=== PATIENT | male | born 1990 | race Caucasian/White ===

== ENCOUNTER 2018-06-10 09:24 | Emergency (ER) | payer OTHER ==
--- NOTE | 2018-06-10 09:48 | EDPHY ---
H & P Time Seen by Provider: 06/10/18 09:37 HPI/ROS: CHIEF COMPLAINT: Left-sided chest pain HISTORY OF PRESENT ILLNESS: Otherwise healthy noted at last night at 9:00 p.m.. No recent URI. Says it is constant just left of his sternum and his upper chest, says it is worse with deep inspiration. Not associated with cough or hemoptysis. No fever or chills. No leg swelling. Not short of breath. Symptoms mild, not associated with radiation to arm back or jaw. No weakness or numbness in extremities. REVIEW OF SYSTEMS: Eye: no change in vision ENT: no sore throat Cardiac: HPI Pulmonary: HPI Abdomen: no vomiting, diarrhea, abdominal pain Musculoskeletal: No leg swelling Skin: no rash Neuro: no headache Constitutional: no fever : no urinary symptoms A comprehensive 10 point review of systems is otherwise negative aside from elements mentioned in the history of present illness. PAST MEDICAL HISTORY: Negative. Specifically no diabetes hypertension or hypercholesterolemia. Family history: Negative for premature coronary disease or sudden , negative for venous thromboembolism. Social history: Nonsmoker, no cocaine, no recent travel or immobilization. General Appearance: Alert and conversant, cooperative. Eyes: No scleral icterus. ENT, Mouth: Normal mucous membranes. Respiratory: Normal respiratory effort, breath sounds equal, lungs are clear to auscultation. No crepitus and no wheezing. Cardiovascular: Regular rate and rhythm. Gastrointestinal: Abdomen is soft and non tender. Neurological: Alert, face symmetric, normal motor and sensory in extremities. Skin: Warm and dry, no rashes. Musculoskeletal: No calf tenderness, leg symmetric. Psychiatric: Not agitated. Emergency Department course/MDM: PERC negative, pulmonary embolism unlikely. Differential diagnosis considered for chest pain including but not limited to myocardial ischemia, aortic dissection, pericarditis, pulmonary embolus, chest wall pain, pleural inflammation and pulmonary infectious causes. ACS unlikely with normal EKG and no risk factors and atypical symptoms. Plan for chest x-ray. Smoking Status: Former smoker Constitutional: Initial Vital Signs Temperature (C) 36.8 C 06/10/18 09:30 Heart Rate 72 06/10/18 09:30 Respiratory Rate 16 06/10/18 09:30 Blood Pressure 128/83 H 06/10/18 09:30 O2 Sat (%) 96 06/10/18 09:30 O2 Delivery Mode Room Air Allergies/Adverse Reactions: No Known Allergies Allergy (Unverified 06/10/18 09:28) Medical Decision Making - Diagnostics EKG Interpretation: 12-lead EKG interpreted by me; official reading is in computer system. My interpretation is sinus rhythm rate 65 normal intervals and no ischemic changes. Imaging Results: Imaging Impressions Chest X-Ray 06/10/18 09:45 Impression: Normal. Imaging: I viewed and interpreted images myself Departure - Departure Disposition: Home, Routine, Self-Care Clinical Impression: Chest pain Qualifiers: Chest pain type: unspecified Qualified Code(s): R07.9 - Chest pain, unspecified Condition: Good Instructions: Chest Pain (ED) Additional Instructions: Normal EKG and chest x-ray. More likely muscular or inflammatory. Ibuprofen 600 mg by mouth every 8 hr as needed for the next 3-4 days for pain. Referrals: Constanza Cruz MD [Medical Doctor] - As per Instructions
--- NOTE | 2018-06-10 10:13 | CPEKG ---
Test Reason : OPEN Blood Pressure : / mmHG Vent. Rate : 065 BPM Atrial Rate : 065 BPM P-R Int : 127 ms QRS Dur : 096 ms QT Int : 397 ms P-R-T Axes : 005 012 014 degrees QTc Int : 413 ms Sinus rhythm Confirmed by Ryan Gomez ([id number]) on 06/10/2018 10:12:50 AM Referred By: RYAN GOMEZ Confirmed By:Ryan Gomez
[2018-06-10 10:21] VITALS: BP 136/79
== END 2018-06-10 10:16 | disposition home or self-care (01) ==
DX: R07.9 Chest pain, unspecified (principal); R06.02 Shortness of breath; Z87.891 Personal history of nicotine dependence

== ENCOUNTER 2018-09-28 15:50 | Inpatient (IN) | payer SELFPAY ==
[2018-09-28 16:30] LABS: PLATELET COUNT 333 10^3/uL (150-400)
--- NOTE | 2018-09-28 17:24 | EDPHY ---
H & P Time Seen by Provider: 09/28/18 16:10 HPI/ROS: HPI Suicidal thoughts. 28-year-old male on an M1 hold with [place] police and EMS from the [facility]. The patient showed up at the crisis Center and told the provider there that he was having increased suicidal thoughts. He has a long history of depression. He has a history of 3 prior suicide attempts. The most recent 1 about a week and half ago, he attempted to cut his wrist. I evaluated his wrists. There is a small well-healed linear laceration that runs parallel to the midline. He tells me that this was more just cutting to distract himself and not an actual suicide attempt. The provider at the crisis Center fill that he was very in different to his life and sent him here on an M1 hold for an evaluation. Patient denies any other complaints. No history of assault or other traumatic injury. ROS: Constitutional: No fever, no chills. As above. Eyes: No discharge. No changes in vision. ENT: No sore throat. No nasal congestion or rhinorrhea. Respiratory: No cough. No shortness of breath. Cardiac: No chest pain, no palpitations. Gastrointestinal: No abdominal pain, no vomiting, no diarrhea. Genitourinary: No hematuria. No dysuria or increased frequency with urination. Musculoskeletal: No back pain. No neck pain. No myalgias or arthralgias. Skin: No rashes. Neurological: No headache. No focal weakness or altered sensation. Past medical history: Depression. He is a [facility] client. Social history: Smokes marijuana. Denies other IV drugs or street drugs. No alcohol. Currently here with his sister who is involved with his care. Physical Exam: General Appearance: Alert, no distress. He is eating. This patient is responding to questions appropriately and in full sentences. This patient appears well-hydrated and well-nourished. Head: Normocephalic atraumatic. Eyes: Pupils equal and round no pallor or injection. No lid edema, erythema or injection. Respiratory: There are no retractions, lungs are clear to auscultation with good air movement bilaterally. Cardiovascular: Regular rate and rhythm. No murmur. Gastrointestinal: Abdomen is soft and nontender, no masses, bowel sounds normal. No focal tenderness at McBurney's point. No Segura sign. Neurological: Motor sensory function is grossly intact. Cranial nerves are normal. Gait is normal. Skin: Warm and dry, no rashes. Musculoskeletal: Neck is supple and nontender. Extremities are symmetrical. All joints range without pain or impingement. Psychiatric: No agitation. No depression. Database: EKG: Imaging: Procedures: Emergency department course: Triage vital signs reviewed and are unremarkable. Behavioral Health TLC notified. Patient's lab work and tox screens reviewed by myself. Patient medically cleared for behavioral health evaluation at 5:25 p.m.. 7:30 p.m., the patient has been seen and evaluated by [facility]. The patient will be admitted to [address] [place] [address] under the care of Dr. Good. I have filled out the appropriate transfer paperwork. The patient's remaining emergency department course under my care has been uneventful. The patient was transferred in stable condition. Differential Diagnosis: The differential diagnosis on this patient includes but is not limited to situational depression, major depression, suicidal ideation. This represents a partial list of diagnoses considered. These considerations are based on history , physical exam, past history, reassessment and diagnostic testing. Smoking Status: Former smoker Constitutional: Initial Vital Signs Temperature (C) 36.9 C 09/28/18 16:15 Heart Rate 79 09/28/18 16:15 Respiratory Rate 16 09/28/18 16:15 Blood Pressure 136/108 H 09/28/18 16:15 O2 Sat (%) 97 09/28/18 16:15 O2 Delivery Mode Room Air Allergies/Adverse Reactions: No Known Allergies Allergy (Unverified 06/10/18 09:28) Home Medications: Medication Instructions Recorded NK [No Known Home Meds] 09/28/18 Medical Decision Making - Data Points Laboratory Results: Laboratory Results 09/28/18 16:18 09/28/18 16:18 09/28/18 09/28/18 09/28/18 16:18 16:18 16:00 WBC 11.52 10^3/uL H 10^3/uL (3.80-9.50) RBC 5.70 10^6/uL 10^6/uL (4.40-6.38) Hgb 16.3 g/dL g/dL (13.7-17.5) Hct 47.3 % % (40.0-51.0) MCV 83.0 fL fL (81.5-99.8) MCH 28.6 pg pg (27.9-34.1) MCHC 34.5 g/dL g/dL (32.4-36.7) RDW 12.4 % % (11.5-15.2) Plt Count 333 10^3/uL 10^3/uL (150-400) MPV 11.5 fL fL (8.7-11.7) Neut % (Auto) 51.6 % % (39.3-74.2) Lymph % (Auto) 36.3 % % (15.0-45.0) Peach % (Auto) 9.1 % % (4.5-13.0) Eos % (Auto) 1.7 % % (0.6-7.6) Baso % (Auto) 0.8 % % (0.3-1.7) Nucleat RBC Rel Count 0.0 % % (0.0-0.2) Absolute Neuts (auto) 5.94 10^3/uL 10^3/uL (1.70-6.50) Absolute Lymphs (auto) 4.18 10^3/uL H 10^3/uL (1.00-3.00) Absolute Monos (auto) 1.05 10^3/uL H 10^3/uL (0.30-0.80) Absolute Eos (auto) 0.20 10^3/uL 10^3/uL (0.03-0.40) Absolute Basos (auto) 0.09 10^3/uL 10^3/uL (0.02-0.10) Absolute Nucleated RBC 0.00 10^3/uL 10^3/uL (0-0.01) Immature Gran % 0.5 % % (0.0-1.1) Immature Gran # 0.06 10^3/uL 10^3/uL (0.00-0.10) Sodium 139 mEq/L mEq/L (135-145) Potassium 3.9 mEq/L mEq/L (3.5-5.2) Chloride 105 mEq/L mEq/L (97-110) Carbon Dioxide 20 mEq/l L mEq/l (22-31) Anion Gap 14 mEq/L mEq/L (6-14) BUN 9 mg/dL mg/dL (7-23) Creatinine 0.9 mg/dL mg/dL (0.7-1.3) Estimated GFR > 60 Glucose 88 mg/dL mg/dL (70-100) Calcium 9.6 mg/dL mg/dL (8.5-10.4) Urine Opiates Screen NEGATIVE (NEGATIVE) Urine Barbiturates NEGATIVE (NEGATIVE) Ur Phencyclidine Scrn NEGATIVE (NEGATIVE) Ur Amphetamine Screen NEGATIVE (NEGATIVE) U Benzodiazepines Scrn NEGATIVE (NEGATIVE) Urine Cocaine Screen NEGATIVE (NEGATIVE) U Marijuana (THC) Screen NON-NEGATIVE H (NEGATIVE) Ethyl Alcohol < 10 mg/dL mg/dL (0-10) Departure - Departure Disposition: [facility] IP Clinical Impression: Suicidal ideation Referrals: NONE *PRIMARY CARE P,. [Primary Care Provider] - As per Instructions
--- NOTE | 2018-09-28 20:03 | PDCONSULT ---
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 Will be admitted to Behavioral Health. Medical consultation 28-year-old male on an M1 hold with [place] police and EMS from the [facility] crisis [facility]. The patient showed up at the crisis Center and told the provider there that he was having increased suicidal thoughts. He has a long history of depression. He has a history of 3 prior suicide attempts. The most recent 1 about a week and half ago, he attempted to cut his wrist. Reports to me that he is not actively suicidal but feels that he is "slowly killing himself". He is able to follow commands and answers some questions. Other than his psychiatric disease, he does not have a significant medical hx. He denies DM but reports that he is really worried about having DM. He denies CV , Pulm, Endocrine disease. He denies fever, n/v/d, cough, sob. He had cp about a week ago but none currently. he denies leg swelling ROS: Constitutional: No fever, no chills. As above. Eyes: No discharge. No changes in vision. ENT: No sore throat. No nasal congestion or rhinorrhea. Respiratory: No cough. No shortness of breath. Cardiac: No chest pain, no palpitations. Gastrointestinal: No abdominal pain, no vomiting, no diarrhea. Genitourinary: No hematuria. No dysuria or increased frequency with urination. Musculoskeletal: No back pain. No neck pain. No myalgias or arthralgias. Skin: No rashes. Neurological: No headache. No focal weakness or altered sensation. Past medical history: Depression. He is a [facility] client. Social history: Smokes marijuana. Denies other IV drugs or street drugs. No alcohol. Currently here with his sister who is involved with his care. Physical Exam: General Appearance: Alert, no distress. He is eating. This patient is responding to questions appropriately and in full sentences. This patient appears well-hydrated and well-nourished. Head: Normocephalic atraumatic. Eyes: Pupils equal and round no pallor or injection. EOMI Respiratory: There are no retractions, lungs are clear to auscultation with good air movement bilaterally. Cardiovascular: Regular rate and rhythm. No murmur. Gastrointestinal: Abdomen is soft and nontender, no masses, bowel sounds normal. Neurological: Motor sensory function is grossly intact. Cranial nerves are normal. Skin: warm Musculoskeletal: Neck is supple and nontender. Extremities are symmetrical. All joints range without pain or impingement. Psychiatric: No agitation. Labs: reviewed A/P #Suicidal Ideations #Major Depression #Obesity Plan: Behavioral health admission check for diabetes per his request check TSH thank you for this consult. Please call if questions
[2018-09-28] MEDS ORDERED: NICOTINE POLACRILEX 2 MG GUM B PRN (21:52)
[2018-09-28] MEDS ORDERED: LORazepam 0.5 MG TAB PO PRN (21:52)
[2018-09-28] MEDS ORDERED: OLANZapine DISINTEGR 5 MG TAB PO PRN (21:52)
[2018-09-28] MEDS ORDERED: MAGNESIUM HYDROXIDE 30 ML UDCUP PO PRN (21:52)
[2018-09-28] MEDS ORDERED: MAG HYDROX/AL HYDROX/SIMETH 30 ML UDCUP PO PRN (21:52)
[2018-09-28] MEDS ORDERED: ACETAMINOPHEN 325 MG TAB PO PRN (21:52)
--- NOTE | 2018-09-29 07:38 | ASMTBHMTP ---
Master Treatment Plan Master Treatment Plan Answers: Depressed Mood with for: Suicidal Ideation Date: 09/29/2018 Diagnosis on Admission: Major Depressive Disorder Expected length of stay: 3-5 Reason for admission: Notes: Per ED report: "28 y.o. male on M1 hold with [place] police and EMS from the [facility] crisis center. The pt. showed up at the crisis center and told the provider there that he was having increased suicidal thoughts. He has a long history of depression. He has a history of 3 prior suicide attempts. The most recent one about a week and a half ago, he attempted to cut his wrist. Reports that he is not actively suicidal but feels that he is "slowly killing himself". Patient's stated presenting problems: Notes: "Severe depression that started to negatively impact my life". Patient's goals for treatment: Notes: "I'm curious about having ADD. I never follow through with anything, never able to hold a job". Patient's strengths: Notes: "I'm a quick learner". Identify supports outside of hospital: Notes: "I don't turn to people for support. I will turn to my family but emotionally I don't seek help". Discharge criteria: Notes: Suicidal ideation will resolve and ct. will have a plan to dafely manage recurrent suicidal ideation. Initial disposition plan/considerations: Notes: Ct. mood will return to baseline. Ct. will participate in units activities and in planning for his discharge. Master Treatment Plan Required Signatures Psychiatrist signature: Answers: Psychiatrist: RN on-shift signature: Answers: RN: Patient signature: Answers: Patient: Date Signed: 09/29/2018 07:37 AM Electronically Signed By:Temi Harrison.[facility]
--- NOTE | 2018-09-29 07:52 | ASMTCMCOM ---
CM Note CM Note Notes: CC met with ct. to develop MTP. Ct. reported hx of depression. Ct. reported that he is not getting any MH services and has no providers. He said that medications trials were unsuccessful as they are making him numb and reckless. Ct. is open to saying MH providers. He reported that he lives with his mother and brother and that he has a trust fund that helps support him. He identified his issues as "Lack of will to live, short attention span". He reported that he gets bored easily and that he was never able to carry a job. He signed TANNA for his parents. Date Signed: 09/29/2018 07:51 AM Electronically Signed By:Temi Harrison.[facility]
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
--- NOTE | 2018-09-29 13:35 | ASMTBHFAM ---
Notes Note: Notes: CC met with FOC and ct. per their request. FOC is interested in exploring residential programs as ct. would like to move out of [facility] home and would need additional support. CC discussed [facility] and [facility] and refed. FOC to their website. FOC would like staff recommendations regarding appropriate programs. He would also like updates on ct.'s progress. His phone number is [phone]. Date Signed: 09/29/2018 01:35 PM Electronically Signed By:Temi Harrison.[facility]
--- NOTE | 2018-09-30 07:41 | SOAPPROG ---
SOAP Progress Note Assessment/Plan: Assessment: Major Depressive Disorder, Severe, with anxious distress. Cannabis Use Disorder. Alcohol Use Disorder. (see subjective/objective note). Patient could benefit from continued inpatient hospitalization for crisis stabilization , safety, medication evaluation, and to establish safe discharge plan including follow-up appointments. Consider discharge this week if patient is stable and has a safe discharge plan. Plan: 1. Psychotropic medications: Continue current medications. 2. Review with patient informed consent and recommendations for psychotropic medication treatment listed below 3. Labs: no additional at this time 4. Therapy: continue milieu and group therapy 5. Further investigation including gathering information from patients relatives and review of past case records to inform treatment plan. 6. Safety/Wellness plan and follow-up outpatient appointments to be established prior to discharge. Next steps are for patient to meet with certified caregiver to plan a safe discharge plan and establish outpatient services for ongoing treatment. 7. Confer with inpatient treatment team regarding treatment plan. 8. Psychosocial stressors addressed through telephonic nurse case manager. 9. Legal status: M1 10. Consider discharge this week if patient is in stable condition, safe, and has a safe discharge plan. PSYCHOTROPIC MEDICATION TREATMENT INFORMED CONSENT and RECOMMENDATIONS: Review nature of condition, diagnosis, and prognosis. Review nature and purpose of psychotropic medication treatment. Review type of psychotropic medications being ordered. Review risk and benefits of psychotropic medication treatment. Review probable length of time patient will need to take medications. Review risk and benefits of not undergoing psychotropic medication treatment. Review alternative treatments to psychotropic medications. Review psychotropic medications contraindications, drug-drug interactions, side effects, and importance of reporting any side effects to a psychiatric provider or nurse during inpatient hospitalization, and upon discharge to patients psychiatric outpatient provider, primary care provider, or other health ostomy care nurse. Review importance of asking a nurse, psychiatric provider, or primary care provider any questions or problems concerning the psychotropic medications. Verify patient understands the information that has been provided, and understands, accepts, and agrees to psychotropic medications. Review patients safety plan and importance of patient to report to staff while hospitalized if patient is ever a danger to self/others, or unable to care for self, and upon discharge, the importance for patient to contact [facility] or 1, or go to the nearest emergency room, if patient is ever a danger to self/others, or unable to care for self. Recommend that upon discharge patient establish medication management treatment with a psychiatric provider, establishes routine therapy appointments, and follow-up with primary care provider. Verify patient understands and agrees to these recommendations. 09/30/18 07:40 Subjective: Following up with patient for evaluation of mood and safety. Patient reports, "Doing okay, just waiting for breakfast." Objective: Vital Signs Temp Pulse Resp BP Pulse Ox 36.9 C 59 L 14 155/73 H 95 09/30/18 06:00 09/30/18 06:00 09/30/18 06:00 09/30/18 06:00 09/30/18 06:00 CASE MANAGEMENT: Awaiting records including pharmacogenomics testing from rehab stay summer. MSE: The patient is a well-nourished male looking stated chronological age. Attire is appropriate dress is casual. Grooming status is appropriate. Ambulation is independent. Gait is normal and coordinated. Posture is normal. Eye contact is appropriate. Motor activity is appropriate with purposeful, organized, coordinated movements; with no involuntary movements. Attitude is cooperative. Patient appears attentive and relates well to this interviewer. Language production is spontaneous. R/R/V normal. Articulation is clear. Patient reports mood as depressed with congruent affect. Patients thought process is linear and logical with no signs of thought disorder. Patient does not report suicidal/homicidal thoughts, ideas, or plans. Patient denies self- injurious ideation. Patient denies auditory, visual hallucinations. Patient denies delusions. Patient does not appear to be attending to internal stimuli. Patients attention and concentration are fair. Patient is oriented to person , place, time. Patients insight is poor. Patients judgment is poor. - Time Spent With Patient Time Spent With Patient: 15 minutes, met with patient individually. - Pending Discharge Pending Discharge Within 24 Hours: No Pending Discharge Within 48 Hours: No ICD10 Worksheet Patient Problems: Problems Problem Status Onset Suicidal ideation Acute
--- NOTE | 2018-09-30 11:25 | ASMTCMCOM ---
CM Note CM Note Notes: CC sent second request for medical records to "[facility] at . Called POC person at , no answer, CC will try again later today.* Date Signed: 09/30/2018 11:24 AM Electronically Signed By:Joey Newton. .Anil,R.P
--- NOTE | 2018-09-30 13:25 | ASMTCMCOM ---
CM Note CM Note Notes: Provider will check in with FOC today. Also, relayed to provider that CC not able to get in touch with previous out-side providers regarding any assessments, medication list, etc. CC texted provider this information. Date Signed: 09/30/2018 01:24 PM Electronically Signed By:Joey Newton. .Anil,R.P
--- NOTE | 2018-10-01 07:59 | SOAPPROG ---
SOAP Progress Note Assessment/Plan: Assessment: Major Depressive Disorder, Severe, with anxious distress. Cannabis Use Disorder. Alcohol Use Disorder. (see subjective/objective note). Patient could benefit from continued inpatient hospitalization for crisis stabilization , safety, medication evaluation, and to establish safe discharge plan including follow-up appointments. Consider discharge this week if patient is stable and has a safe discharge plan. Plan: 1. Psychotropic medications: Continue current medications. 2. Review with patient informed consent and recommendations for psychotropic medication treatment listed below 3. Labs: no additional at this time 4. Therapy: continue milieu and group therapy 5. Further investigation including gathering information from patients relatives and review of past case records to inform treatment plan. 6. Safety/Wellness plan and follow-up outpatient appointments to be established prior to discharge. Next steps are for patient to meet with respiratory care faculty to plan a safe discharge plan and establish outpatient services for ongoing treatment. 7. Confer with inpatient treatment team regarding treatment plan. 8. Psychosocial stressors addressed through pillowcase cutter. 9. Legal status: M1 10. Consider discharge this week if patient is in stable condition, safe, and has a safe discharge plan. PSYCHOTROPIC MEDICATION TREATMENT INFORMED CONSENT and RECOMMENDATIONS: Review nature of condition, diagnosis, and prognosis. Review nature and purpose of psychotropic medication treatment. Review type of psychotropic medications being ordered. Review risk and benefits of psychotropic medication treatment. Review probable length of time patient will need to take medications. Review risk and benefits of not undergoing psychotropic medication treatment. Review alternative treatments to psychotropic medications. Review psychotropic medications contraindications, drug-drug interactions, side effects, and importance of reporting any side effects to a psychiatric provider or nurse during inpatient hospitalization, and upon discharge to patients psychiatric outpatient provider, primary care provider, or other health youth care professional. Review importance of asking a nurse, psychiatric provider, or primary care provider any questions or problems concerning the psychotropic medications. Verify patient understands the information that has been provided, and understands, accepts, and agrees to psychotropic medications. Review patients safety plan and importance of patient to report to staff while hospitalized if patient is ever a danger to self/others, or unable to care for self, and upon discharge, the importance for patient to contact [facility] or 1, or go to the nearest emergency room, if patient is ever a danger to self/others, or unable to care for self. Recommend that upon discharge patient establish medication management treatment with a psychiatric provider, establishes routine therapy appointments, and follow-up with primary care provider. Verify patient understands and agrees to these recommendations. 10/01/18 07:58 Subjective: Following up with patient for evaluation of mood and safety. Patient reports, "Doing fine. I heard my records arrived here last night." Patient agrees with this [employer] SORTER to call his dad today. Objective: Vital Signs Temp Pulse Resp BP Pulse Ox 36.5 C 85 14 133/90 H 95 10/01/18 06:00 10/01/18 06:00 10/01/18 06:00 10/01/18 06:00 10/01/18 06:00 CASE MANAGEMENT: Awaiting records including pharmacogenomics testing from rehab stay summer. MSE: The patient is a well-nourished male looking stated chronological age. Attire is appropriate dress is casual. Grooming status is appropriate. Ambulation is independent. Gait is normal and coordinated. Posture is normal. Eye contact is appropriate. Motor activity is appropriate with purposeful, organized, coordinated movements; with no involuntary movements. Attitude is cooperative. Patient appears attentive and relates well to this interviewer. Language production is spontaneous. R/R/V normal. Articulation is clear. Patient reports mood as depressed with congruent affect. Patients thought process is linear and logical with no signs of thought disorder. Patient does not report suicidal/homicidal thoughts, ideas, or plans. Patient denies self- injurious ideation. Patient denies auditory, visual hallucinations. Patient denies delusions. Patient does not appear to be attending to internal stimuli. Patients attention and concentration are fair. Patient is oriented to person , place, time. Patients insight is poor. Patients judgment is poor. - Time Spent With Patient Time Spent With Patient: 15 minutes, met with patient individually. - Pending Discharge Pending Discharge Within 24 Hours: No Pending Discharge Within 48 Hours: No ICD10 Worksheet Patient Problems: Problems Problem Status Onset Alcohol use disorder, moderate, dependence Acute Cannabis use disorder, severe, dependence Acute Major depressive disorder, recurrent episode, severe with anxious distress Chronic
[2018-10-01] MEDS: buPROPion XL 150 MG TAB PO SCH (11:51)
--- NOTE | 2018-10-01 13:44 | ASMTCMCOM ---
CM Note CM Note Notes: Client suggests feeling "alright," today. He noted limited or no feelings of anxiety, SI/HI and AVH; while suggesting his depression is 6/10. Received his genetic testing and passed along to Provider. Client started on Wellbutrin. Will converse with client tomorrow about having a family meeting with father to understand direction of any discharge plans, etc. Date Signed: 10/01/2018 01:43 PM Electronically Signed By:Joey Newton. .Michael.Alfie.,R.P
--- NOTE | 2018-10-01 14:00 | ASMTCMCOM ---
CM Note CM Note Notes: Spoke to [facility] at ; asked father if he would come in tomorrow or Saturday for possible family meeting, etc. FOC noted that it should not be a problem. FOC noted that client is stuck and does not have a lot of direction and would encourage client to receive IOP or residential treatment for issues (Dual diagnosis) facility. [facility] noted that he would be availabe tomorrow at 1:30 pm for famlily meeting. Date Signed: 10/01/2018 01:59 PM Electronically Signed By:Joey Newton. .Gabi.,R.P
--- NOTE | 2018-10-02 08:06 | SOAPPROG ---
SOAP Progress Note Assessment/Plan: Assessment: Major Depressive Disorder, Severe, with anxious distress. Cannabis Use Disorder. Alcohol Use Disorder. (see subjective/objective note). Patient could benefit from continued inpatient hospitalization for crisis stabilization , safety, medication evaluation, and to establish safe discharge plan including follow-up appointments. Consider discharge this week if patient is stable and has a safe discharge plan. Plan: 1. Psychotropic medications: Continue current medications. 2. Review with patient informed consent and recommendations for psychotropic medication treatment listed below 3. Labs: no additional at this time 4. Therapy: continue milieu and group therapy 5. Further investigation including gathering information from patients relatives and review of past case records to inform treatment plan. 6. Safety/Wellness plan and follow-up outpatient appointments to be established prior to discharge. Next steps are for patient to meet with nurse healthcare manager to plan a safe discharge plan and establish outpatient services for ongoing treatment. 7. Confer with inpatient treatment team regarding treatment plan. 8. Psychosocial stressors addressed through renal case manager. 9. Legal status: voluntary 10. Consider discharge this week if patient is in stable condition, safe, and has a safe discharge plan. PSYCHOTROPIC MEDICATION TREATMENT INFORMED CONSENT and RECOMMENDATIONS: Review nature of condition, diagnosis, and prognosis. Review nature and purpose of psychotropic medication treatment. Review type of psychotropic medications being ordered. Review risk and benefits of psychotropic medication treatment. Review probable length of time patient will need to take medications. Review risk and benefits of not undergoing psychotropic medication treatment. Review alternative treatments to psychotropic medications. Review psychotropic medications contraindications, drug-drug interactions, side effects, and importance of reporting any side effects to a psychiatric provider or nurse during inpatient hospitalization, and upon discharge to patients psychiatric outpatient provider, primary care provider, or other health childcare administrator. Review importance of asking a nurse, psychiatric provider, or primary care provider any questions or problems concerning the psychotropic medications. Verify patient understands the information that has been provided, and understands, accepts, and agrees to psychotropic medications. Review patients safety plan and importance of patient to report to staff while hospitalized if patient is ever a danger to self/others, or unable to care for self, and upon discharge, the importance for patient to contact [facility] or 1, or go to the nearest emergency room, if patient is ever a danger to self/others, or unable to care for self. Recommend that upon discharge patient establish medication management treatment with a psychiatric provider, establishes routine therapy appointments, and follow-up with primary care provider. Verify patient understands and agrees to these recommendations. 10/02/18 08:06 Subjective: Following up with patient for evaluation of mood and safety. Patient reports, "Had some insomnia last night, but maybe that's because I took the Wellbutrin later in the day. Will see how it goes today with taking it early." Objective: Vital Signs Temp Pulse Resp BP Pulse Ox 36.4 C 75 15 137/83 H 97 10/02/18 06:00 10/02/18 06:00 10/02/18 06:00 10/02/18 06:00 10/02/18 06:00 MSE: The patient is a well-nourished male looking stated chronological age. Attire is appropriate dress is casual. Grooming status is appropriate. Ambulation is independent. Gait is normal and coordinated. Posture is normal. Eye contact is appropriate. Motor activity is appropriate with purposeful, organized, coordinated movements; with no involuntary movements. Attitude is cooperative. Patient appears attentive and relates well to this interviewer. Language production is spontaneous. R/R/V normal. Articulation is clear. Patient reports mood as depressed with congruent affect. Patients thought process is linear and logical with no signs of thought disorder. Patient does not report suicidal/homicidal thoughts, ideas, or plans. Patient denies self- injurious ideation. Patient denies auditory, visual hallucinations. Patient denies delusions. Patient does not appear to be attending to internal stimuli. Patients attention and concentration are fair. Patient is oriented to person , place, time. Patients insight is poor. Patients judgment is poor. - Time Spent With Patient Time Spent With Patient: 15 minutes, met with patient individually. - Pending Discharge Pending Discharge Within 24 Hours: No Pending Discharge Within 48 Hours: No ICD10 Worksheet Patient Problems: Problems Problem Status Onset Alcohol use disorder, moderate, dependence Acute Cannabis use disorder, severe, dependence Acute Major depressive disorder, recurrent episode, severe with anxious distress Chronic
[2018-10-02] MEDS: buPROPion XL 150 MG TAB PO SCH (09:10)
--- NOTE | 2018-10-02 13:57 | HOSPPROG ---
Hospitalist Progress Note Assessment/Plan: Elevated blood pressures Anxiety Asked to comment on hypertension in setting of Wellbutrin. Chart reviewed. Wellbutrin acts on Norepinephrine and Dopamine. The former could, in theory, increase risk for hypertension. However, on chart review, his BP's have actually trended down since initiating Wellbutrin. Thus his improved blood pressures may be a sign that his anxiety is better controlled. For now, will defer initiating anti-hypertensive therapy given improved BP's. Will continue to monitor BP's daily and if persistently >140/90, will consider starting anti- hypertensive. I do not think Wellbutrin needs to be discontinued as it seems to be giving him benefit without worsening his BP's and in fact, his BP's are improved, 130's/80's today. Objective: Vital Signs Temp Pulse Resp BP Pulse Ox 36.4 C 75 15 137/83 H 97 10/02/18 06:00 10/02/18 06:00 10/02/18 06:00 10/02/18 06:00 10/02/18 06:00 ICD10 Worksheet Patient Problems: Problems Problem Status Onset Alcohol use disorder, moderate, dependence Acute Cannabis use disorder, severe, dependence Acute Major depressive disorder, recurrent episode, severe with anxious distress Chronic
[2018-10-02] MEDS: MELATONIN 3 MG TAB PO PRN (22:00)
--- NOTE | 2018-10-03 08:57 | ASMTCMCOM ---
CM Note CM Note Notes: CC received message from "[facility]," a step-down residential facility for client to go to. Provided all necessary ppw. Date Signed: 10/03/2018 08:57 AM Electronically Signed By:Joey Newton. .Anil,R.P
[2018-10-03] MEDS: buPROPion XL 150 MG TAB PO SCH (09:22)
--- NOTE | 2018-10-03 13:39 | ASMTCMCOM ---
CM Note CM Note Notes: Spoke to client's FOC who asked for additional literature regarding additional poss. dual substance and mental facilities. CC provided several different options for [facility], etc. Waiting for FOC to p/u them up.* Date Signed: 10/03/2018 01:38 PM Electronically Signed By:Joey Newton. .Gabi.,R.P
--- NOTE | 2018-10-03 18:43 | SOAPPROG ---
SOAP Progress Note Assessment/Plan: Assessment: Plan: 10/03/18 18:43 Mood: Appears bright, though remains ambivalent and hopeless. I agree with family meeting tomorrow to determine course of treatment after d/c. Subjective: Pt seen, discussed with staff. He reports being "bored". Sleeping during art group. He states he wants to go to [facility] in [place]. States he is no longer suicidal. Wants to return to his mother's home though reports she is in [place] right now. He plans to then go to [place] on his own. I asked him about his suicidality and he stated initially that he was not suicidal, but then talked about "having no hope and no reason to live." He did state he wanted to go to program in [place] and would not harm himself prior to this. I spoke to CC and he recommended a family meeting tomorrow to decide course. MSE: Marginally groomed, pleasant and coop. Affect is blunted, stable, approp. Mood is "OK." TP is linear. TC reveals no psychosis. Denies active SI at this time. Objective: Vital Signs Temp Pulse Resp BP Pulse Ox 36.8 C 63 15 136/89 H 95 10/03/18 16:50 10/03/18 16:50 10/03/18 16:50 10/03/18 16:50 10/03/18 16:50 - Time Spent With Patient Time Spent With Patient: 25" ICD10 Worksheet Patient Problems: Problems Problem Status Onset Alcohol use disorder, moderate, dependence Acute Cannabis use disorder, severe, dependence Acute Major depressive disorder, recurrent episode, severe with anxious distress Chronic
[2018-10-03] MEDS: MELATONIN 3 MG TAB PO PRN (21:04)
[2018-10-04 06:49] VITALS: BP 123/76
[2018-10-04] MEDS: buPROPion XL 150 MG TAB PO SCH (08:39)
--- NOTE | 2018-10-04 11:29 | SOAPPROG ---
SOAP Progress Note Assessment/Plan: Assessment: 28yo CM with MDD recurrent with anxious distress, THC/EtOH use d/o, admitted with SI 10/04/18 11:27 per staff, slept 7.5hrs no behavioral issues. attending groups. met with patient and father today. pt expressing good insight into need for treatment and motivation to go to residential treatment. following family intervention, states he went to a rehab last summer "but I wasn 't ready, I just jumped through the hoops, put on a happy face" Now reporting motivation is his own for his own recovery. expresses future- oriented thinking, and states his mother spoke with [facility] in [place] and is supportive of his going there. If okay for d/c, Father states he will purchase a ticket for pt to fly out to [facility] and staff from program will meet patient there. Pt requests med for sleep if staying another night. feels melatonin not too helpful. willing to try benadryl 25mg hs prn insomnia. Otherwise reports no med s/e to Wellbutrin which he recently started. MSE: cooperative, good eye contact, nml speech rate/vol. reports feeling hopeful. affect constricted but appropriate. smiling appropriately. thoughts linear/goal-directed. denies any thoughts to harm self or others. denies any psychotic sxs. does not appear responding to any internal stimuli. i/j both seem intact. cognition conversationally intact. plan: CC coordinating with residential program and family and pt. cont Wellbutrin XL 150mg. will provide 1 week Rx for d/c voluntary status stable for d/c. will schedule d/c depending on when flight scheduled Objective: Vital Signs Temp Pulse Resp BP Pulse Ox 36.6 C 67 14 123/76 H 94 10/04/18 06:00 10/04/18 06:00 10/04/18 06:00 10/04/18 06:00 10/04/18 06:00 - Time Spent With Patient Time Spent With Patient: 30min - Pending Discharge Pending Discharge Within 24 Hours: Yes Pending Discharge Date: 10/05/18 Pending Discharge Time: 11:00 ICD10 Worksheet Patient Problems: Problems Problem Status Onset Alcohol use disorder, moderate, dependence Acute Cannabis use disorder, severe, dependence Acute Major depressive disorder, recurrent episode, severe with anxious distress Chronic
--- NOTE | 2018-10-04 14:28 | ASMTCMCOM ---
CM Note CM Note Notes: The patient is no longer endorsing suicidal ideation. Per consultation with the psychiatrist, we've concurred that the patient is currently stable and appropriate for residential tx services. Date Signed: 10/04/2018 01:55 PM Electronically Signed By:Leela Prater. MICHELE,Juan Pablo,R-DMT
== END 2018-10-04 15:30 | disposition home or self-care (01) | DRG 885 ==
LOC: EDUNIT# → BBEH 20:55
PROVIDERS: ADMIT Psychiatry & Neurology Psychiatry; ATTEND Psychiatry & Neurology Psychiatry
DX: F33.3 Major depressive disorder, recurrent, severe with psychotic symptoms (principal); F12.90 Cannabis use, unspecified, uncomplicated; E66.9 Obesity, unspecified; Z72.89 Other problems related to lifestyle
CPT/HCPCS: 80305; G0480